=== PATIENT | female | born 1945 | race Caucasian/White ===

== ENCOUNTER 2018-10-28 23:13 | Emergency (ER) | payer OTHER ==
--- OUTSIDE RECORDS SUMMARY | 2018-10-28 23:16 | XMS REPORT | Continuity of Care Document ---
:1945 Author Organization Interface Problems Problem Status Onset Classification Date Comments Source Date Reported Varicose veins of Active Diagnosis 03/31/2018 [facility] lower extremity [place] with inflammation Varicose veins of Active Problem 03/31/2018 [facility] leg with pain [place] EDEMA Active Diagnosis 03/31/2018 [facility] [place] Varicose veins Active Problem 03/31/2018 [facility] NOS [place] Venous Active Problem 03/31/2018 [facility] insufficiency [place] (peripheral) PAIN IN LIMB Active Diagnosis 03/31/2018 [facility] [place] VENOUS Active Diagnosis 03/31/2018 [facility] INSUFFICIENCY NOS [place] Medications Medication Details Route Status Patient Ordering Order Source Instructions Provider Date Allergies, Adverse Reactions, Alerts Substance Category Reaction Severity Reaction Status Date Comments Source type Reported Immunizations Immunization Date Given Site Status Last Updated Comments Source Results Order Results Value Reference Date Interpretation Comments Source Name Range Vital Signs Vital Sign Value Date Comments Source Encounters Location Location Encounter Encounter Reason Attending ADM DC Status Source Details Type Number For Provider Date Date Visit Procedures Procedure Code Date Perfomer Comments Source
--- OUTSIDE RECORDS SUMMARY | 2018-10-28 23:16 | XMS REPORT ---
:1945 Author Organization [employer] Care Team Providers Name Role Phone Ward Ramos Provider Role Unavailable Allergies No Known Allergies Problems Problem Type Condition Code Onset Dates Condition Status Problem Varicose veins of lower extremity 454.1 Active with inflammation Problem Varicose veins of leg with pain 454.8 Active Problem EDEMA 782.3 Active Problem Varicose veins NOS 454.9 Active Problem Venous insufficiency (chronic) I87.2 Active (peripheral) Medications No Known Medications Results No Known Results Summary Purpose [employer] [employer] Submission
--- OUTSIDE RECORDS SUMMARY | 2018-10-28 23:16 | XMS REPORT ---
:1945 Author Organization [employer] Care Team Providers Name Role Phone Ward Ramos Provider Role Unavailable Allergies No Known Allergies Problems Problem Type Condition Code Onset Dates Condition Status Assessment EDEMA 782.3 Active Assessment Varicose veins of lower extremity 454.1 Active with inflammation Assessment PAIN IN LIMB 729.5 Active Problem Varicose veins of lower extremity 454.1 Active with inflammation Problem Varicose veins of leg with pain 454.8 Active Problem EDEMA 782.3 Active Assessment VENOUS INSUFFICIENCY NOS 459.81 Active Assessment Varicose veins of leg with pain 454.8 Active Problem Varicose veins NOS 454.9 Active Problem Venous insufficiency (chronic) I87.2 Active (peripheral) Medications No Known Medications Results No Known Results Summary Purpose [employer]ClinicalWorks Submission
[2018-10-29] MEDS ORDERED: HYDROCODONE/APAP 7.5/325 MG TAB ONE (01:02)
[2018-10-29] MEDS ORDERED: KETOROLAC 30 MG/ML INJ ONE (01:03)
--- NOTE | 2018-10-29 02:05 | ER ---
Nurse's Notes [facility] Name: Rachel Anglin Age: 73 yrs Sex: Female : 1945 Arrival Date: 10/28/2018 Time: 23:17 Bed 14 Private MD: Diagnosis: Pain in left leg;Sprain of other specified parts of knee Presentation: 10/28 23:40 Presenting complaint: Patient states: Nontraumatic left leg pain from the knee up since cc3 this noon, noted to have left foot swelling as well. Transition of care: patient was not received from another setting of care. Onset of symptoms was October 28, 2018. Risk Assessment: Do you want to hurt yourself or someone else? Patient reports no desire to harm self or others. Initial Sepsis Screen: Does the patient meet any 2 criteria? No. Patient's initial sepsis screen is negative. Does the patient have a suspected source of infection? No. Patient's initial sepsis screen is negative. Care prior to arrival: None. 23:40 Method Of Arrival: Wheelchair cc3 23:40 Acuity: KAYLA 3 cc3 Triage Assessment: 23:40 General: Appears in no apparent distress. uncomfortable, Behavior is calm, cooperative, cc3 appropriate for age. Pain: Complains of pain in left leg Pain currently is 10 out of 10 on a pain scale. Quality of pain is described as aching. EENT: No signs and/or symptoms were reported regarding the EENT system. Neuro: Level of Consciousness is awake, alert, obeys commands, Oriented to person, place, time, situation, Appropriate for age. Cardiovascular: Denies chest pain. Respiratory: Airway is patent Respiratory effort is even, unlabored, Respiratory pattern is regular, symmetrical. GI: Abdomen is round non-distended. : No signs and/or symptoms were reported regarding the genitourinary system. Derm: No signs and/or symptoms reported regarding the dermatologic system. Musculoskeletal: Circulation, motion, and sensation intact. Range of motion: limited in left leg. Historical: - Allergies: 23:40 No Known Allergies; cc3 - Home Meds: 23:40 amlodipine oral [Active]; Amiodarone Oral [Active]; cc3 - PMHx: 23:40 Hypertension; Atrial Fib; cc3 - PSHx: 23:40 stent; colon surgery; Appendectomy; cc3 - Immunization history:: Adult Immunizations up to date. - Social history:: Smoking status: Patient/guardian denies using tobacco, never smoked. - Ebola Screening: : No symptoms or risks identified at this time. Screenin:40 Abuse screen: Denies threats or abuse. Denies injuries from another. Nutritional cc3 screening: No deficits noted. Tuberculosis screening: No symptoms or risk factors identified. Fall Risk Ambulatory Aid- None/Bed Rest/Nurse Assist (0 pts). Gait- Weak (10 pts.). Mental Status- Oriented to own ability (0 pts). Assessment: 23:40 General: see triage assessment. cc3 10/29 00:25 Reassessment: Patient appears in no apparent distress at this time. Patient and/or cc3 family updated on plan of care and expected duration. Pain level reassessed. Patient is alert, oriented x 3, equal unlabored respirations, skin warm/dry/pink. 01:20 Reassessment: Patient appears in no apparent distress at this time. Patient and/or cc3 family updated on plan of care and expected duration. Pain level reassessed. Patient is alert, oriented x 3, equal unlabored respirations, skin warm/dry/pink. 02:10 Reassessment: Patient appears in no apparent distress at this time. Patient and/or cc3 family updated on plan of care and expected duration. Pain level reassessed. Patient is alert, oriented x 3, equal unlabored respirations, skin warm/dry/pink. XUAN Terrazas discharged the patient home with prescription given. No IV cannula in situ. Patient left ER vitally stable by wheelchair with her family. Vital Signs: 10/28 23:40 BP 126 / 77; Pulse 89; Resp 20 S; Temp 98.1(O); Pulse Ox 98% on R/A; Weight 86.18 kg cc3 (R); Height 5 ft. 9 in. (175.26 cm) (R); Pain 07/18; 10/29 00:25 BP 123 / 72; Pulse 88; Resp 18 S; Pulse Ox 98% on R/A; cc3 01:50 BP 130 / 61; Pulse 83; Resp 17 S; Pulse Ox 99% on R/A; Pain 310; cc3 10/28 23:40 Body Mass Index 28.06 (86.18 kg, 175.26 cm) cc3 ED Course: 10/28 23:17 Patient arrived in ED. am2 23:23 Aparna Fox is Primary Nurse. cc3 23:40 Arm band placed on left wrist. Patient notified of wait time. cc3 23:40 Patient has correct armband on for positive identification. Bed in low position. Call cc3 light in reach. Side rails up X 1. Pulse ox on. NIBP on. 23:55 Triage completed. cc3 10/29 00:18 Patricio Terrazas PA is PHCP. jr8 00:18 Jorge Luis Reyes MD is Attending Physician. jr8 01:48 Ultrasound completed. Patient tolerated well. cy 02:10 No provider procedures requiring assistance completed. Patient did not have IV access cc3 during this emergency room visit. Administered Medications: 00:55 Drug: [place] (7.5 mg-325 mg) 1 tabs Route: PO; cc3 01:30 Follow up: Response: No adverse reaction; Pain is decreased cc3 01:00 Drug: TORadol 60 mg Route: IM; Site: right gluteus; cc3 01:30 Follow up: Response: No adverse reaction; Pain is decreased cc3 Outcome: 02:04 Discharge ordered by . jr8 02:10 Discharged to home via wheelchair, with family. cc3 02:10 Condition: stable 02:10 Discharge instructions given to patient, family, Instructed on discharge instructions, follow up and referral plans. medication usage, Demonstrated understanding of instructions, follow-up care, medications, Prescriptions given X 2. 02:15 Patient left the ED. cc3 Signatures: Patricio Terrazas PA PA jr8 Iraida Lorenzana am[address] Aparna Fox cc3
--- NOTE | 2018-10-29 02:05 | EDPHYS ---
Physician Documentation [facility] Name: Racehl Anglin Age: 73 yrs Sex: Female : 1945 Arrival Date: 10/28/2018 Time: 23:17 Bed 14 Private MD: ED Physician Jorge Luis Reyes HPI: 10/29 01:57 This 73 yrs old Female presents to ER via Wheelchair with complaints of Leg jr8 Pain. 01:57 The patient presents with pain, that is acute. The complaints affect the left leg. jr8 Context: The problem was sustained moravian, resulted from a repetitive motion. Onset: The symptoms/episode began/occurred acutely, today. Modifying factors: The symptoms are alleviated by nothing. the symptoms are aggravated by movement, weight bearing, bending knee. Associated signs and symptoms: The patient has no apparent associated signs or symptoms. Severity of symptoms: At their worst the symptoms were mild, in the emergency department the symptoms are unchanged. The patient has not experienced similar symptoms in the past. The patient has not recently seen a physician. Patient stated that she was doing a lot of sitting and standing at moravian. While getting up at one point felt a sharp twinge in leg. Since then has had pain to left leg from knee to thigh region. Noticed increase swelling in left leg from ankle to calf region. Historical: - Allergies: 10/28 23:40 No Known Allergies; cc3 - Home Meds: 23:40 amlodipine oral [Active]; Amiodarone Oral [Active]; cc3 - PMHx: 23:40 Hypertension; Atrial Fib; cc3 - PSHx: 23:40 stent; colon surgery; Appendectomy; cc3 - Immunization history:: Adult Immunizations up to date. - Social history:: Smoking status: Patient/guardian denies using tobacco, never smoked. - Ebola Screening: : No symptoms or risks identified at this time. ROS: 10/29 01:57 Eyes: Negative for injury, pain, redness, and discharge, ENT: Negative for injury, jr8 pain, and discharge, Neck: Negative for injury, pain, and swelling, Cardiovascular: Negative for chest pain, palpitations, and edema, Respiratory: Negative for shortness of breath, cough, wheezing, and pleuritic chest pain, Abdomen/GI: Negative for abdominal pain, nausea, vomiting, diarrhea, and constipation, Back: Negative for injury and pain, Skin: Negative for injury, rash, and discoloration, Neuro: Negative for headache, weakness, numbness, tingling, and seizure. MS/extremity: Positive for pain, of the left leg. Exam: 01:57 Eyes: Pupils equal round and reactive to light, extra-ocular motions intact. Lids and jr8 lashes normal. Conjunctiva and sclera are non-icteric and not injected. Cornea within normal limits. Periorbital areas with no swelling, redness, or edema. ENT: Nares patent. No nasal discharge, no septal abnormalities noted. Tympanic membranes are normal and external auditory canals are clear. Oropharynx with no redness, swelling, or masses, exudates, or evidence of obstruction, uvula midline. Mucous membranes moist. Neck: Trachea midline, no thyromegaly or masses palpated, and no cervical lymphadenopathy. Supple, full range of motion without nuchal rigidity, or vertebral point tenderness. No Meningismus. Cardiovascular: Regular rate and rhythm with a normal S1 and S2. No gallops, murmurs, or rubs. Normal PMI, no JVD. No pulse deficits. Respiratory: Lungs have equal breath sounds bilaterally, clear to auscultation and percussion. No rales, rhonchi or wheezes noted. No increased work of breathing, no retractions or nasal flaring. Abdomen/GI: Soft, non-tender, with normal bowel sounds. No distension or tympany. No guarding or rebound. No evidence of tenderness throughout. Back: No spinal tenderness. No costovertebral tenderness. Full range of motion. Skin: Warm, dry with normal turgor. Normal color with no rashes, no lesions, and no evidence of cellulitis. Neuro: Awake and alert, GCS 15, oriented to person, place, time, and situation. Cranial nerves II-XII grossly intact. Motor strength 5/5 in all extremities. Sensory grossly intact. Cerebellar exam normal. Normal gait. 01:57 Musculoskeletal/extremity: Extremities: grossly normal except: noted in the left leg: pain, tenderness, to back of knee and anterior thigh, ROM: intact in all extremities, full active range of motion, full passive range of motion, limited active range of motion due to pain, limited passive range of motion due to pain, Circulation is intact in all extremities. Sensation intact. DVT Exam: negative Homans' sign noted on exam, no appreciated bluish discoloration, no erythema, no increased warmth, pain, that is moderate, of the left leg, swelling, that is mild, of the left leg, tenderness, that is mild, of the left leg. Vital Signs: 10/28 23:40 BP 126 / 77; Pulse 89; Resp 20 S; Temp 98.1(O); Pulse Ox 98% on R/A; Weight 86.18 kg cc3 (R); Height 5 ft. 9 in. (175.26 cm) (R); Pain 07/18; 10/29 00:25 BP 123 / 72; Pulse 88; Resp 18 S; Pulse Ox 98% on R/A; cc3 01:50 BP 130 / 61; Pulse 83; Resp 17 S; Pulse Ox 99% on R/A; Pain 310; cc3 10/28 23:40 Body Mass Index 28.06 (86.18 kg, 175.26 cm) cc3 MDM: 00:18 Patient medically screened. jr8 02:03 Data reviewed: vital signs, nurses notes, radiologic studies, ultrasound, and as a jr8 result, I will discharge patient. Data interpreted: Pulse oximetry: on room air is 98 %. Interpretation: normal. Counseling: I had a detailed discussion with the patient and/or guardian regarding: the historical points, exam findings, and any diagnostic results supporting the discharge/admit diagnosis, radiology results, the need for outpatient follow up, a family practitioner, a orthopedic surgeon, to return to the emergency department if symptoms worsen or persist or if there are any questions or concerns that arise at home. 10/29 00:43 Order name: US Extremity Venous Unilateral Ltd jr8 Administered Medications: 00:55 Drug: [place] (7.5 mg-325 mg) 1 tabs Route: PO; cc3 01:30 Follow up: Response: No adverse reaction; Pain is decreased cc3 01:00 Drug: TORadol 60 mg Route: IM; Site: right gluteus; cc3 01:30 Follow up: Response: No adverse reaction; Pain is decreased cc3 Disposition: 10/29/18 02:04 Discharged to Home. Impression: Pain in left leg, Sprain of other specified parts of knee. - Condition is Stable. - Discharge Instructions: Knee Sprain, Musculoskeletal Pain. - Prescriptions for Robaxin 500 mg Oral Tablet - take 2 tablet by ORAL route every 6 hours As needed; 40 tablet. Ultracet 37.5- 325 mg Oral Tablet - take 1 tablet by ORAL route every 6 hours - for up to 5 days; do not exceed 8 tablets per day.; 30 tablet. - Medication Reconciliation Form, Thank You Letter, Antibiotic Education, Prescription Opioid Use form. - Follow up: Private Physician; When: 5 - 6 days; Reason: Recheck today's complaints, Continuance of care, Re-evaluation by your physician. - Problem is new. - Symptoms have improved. Signatures: Dispatcher [employer] EDMS Patricio Terrazas PA PA jr8 Aparna Fox cc3 Corrections: (The following items were deleted from the chart) 02:04 02:04 10/29/2018 02:04 Discharged to Home. Impression: Pain in left leg. Condition is jr8 Stable. Forms are Medication Reconciliation Form, Thank You Letter, Antibiotic Education, Prescription Opioid Use. Follow up: Private Physician; When: 5 - 6 days; Reason: Recheck today's complaints, Continuance of care, Re-evaluation by your physician. Problem is new. Symptoms have improved. jr8 02:15 02:04 10/29/2018 02:04 Discharged to Home. Impression: Pain in left leg; Sprain of cc3 other specified parts of knee. Condition is Stable. Forms are Medication Reconciliation Form, Thank You Letter, Antibiotic Education, Prescription Opioid Use. Follow up: Private Physician; When: 5 - 6 days; Reason: Recheck today's complaints, Continuance of care, Re-evaluation by your physician. Problem is new. Symptoms have improved. jr8
--- NOTE | 2018-10-29 08:22 | RAD REPORT ---
EXAM DESCRIPTION: USExtremity Venous Uni Ltd10/29/2018 1:48 am CLINICAL HISTORY: left leg pain COMPARISON: None. FINDINGS: Left common femoral, superficial femoral, popliteal and posterior tibial veins are compre ssible and demonstrate augmentation. Doppler demonstrates good flow. IMPRESSION: No evidence of deep venous thrombosis involving the left lower extremity.
== END 2018-10-29 02:15 | disposition home or self-care (01) ==
LOC: ER 23:13
DX: S83.92XA Sprain of unspecified site of left knee, initial encounter (principal); X50.3XXA Overexertion from repetitive movements, initial encounter; Y93.9 Activity, unspecified; Y92.22 Religious institution as the place of occurrence of the external cause
CPT/HCPCS: 93971

== ENCOUNTER 2019-02-20 19:08 | Emergency (ER) | payer OTHER ==
--- OUTSIDE RECORDS SUMMARY | 2019-02-20 19:10 | XMS REPORT ---
[...] Medications Results No Known Results Summary Purpose [employer] Submission
[2019-02-20] MEDS ORDERED: ACETAMINOPHEN 500 MG TAB ONE (19:53)
--- NOTE | 2019-02-20 20:02 | RAD REPORT ---
EXAM DESCRIPTION: CT - Head C Spine Mpr Wo Con - 02/20/2019 7:43 pm CLINICAL HISTORY: Head and neck injury status post fall. Head and neck pain COMPARISON: None. TECHNIQUE: Computed axial tomography of the head and cervical spine was obtained. Sagittal and coronal reconstruction was performed. All CT scans are performed using dose optimization technique as appropriate and may include automated exposure control or mA/KV adjustment according to patient size. FINDINGS: An intracranial bleed is not seen. Low-density areas within the right cerebrum may be seco ndary to old infarction. Mild periventricular, subcortical and deep white matter low-density areas li misa related to ischemic changes secondary to small vessel disease The ventricles are normal in caliber. An extra-axial fluid collection is not noted.Fluid within the v isualized sinuses and mastoids is not seen A cervical fracture is not visualized. No dislocation is noted. Spondylosis involves cervical spine IMPRESSION: No acute intracranial abnormality is seen. A cervical fracture is not visualized. If the patient continues to have symptoms to suggest intracra nial /spinal cord pathology then MRI would be recommended
--- NOTE | 2019-02-20 20:03 | RAD REPORT ---
EXAM DESCRIPTION: RAD - Hip Right 2 View - 02/20/2019 7:57 pm CLINICAL HISTORY: Right hip pain status post injury FINDINGS: No fracture or dislocation is seen. If the patient continues to have symptoms to suggest an occult fracture then MRI would be recommended
--- NOTE | 2019-02-20 20:34 | RAD REPORT ---
EXAM DESCRIPTION: Jonny Rodriguez And Lat (2 Views)02/20/2019 7:57 pm CLINICAL HISTORY: Cough COMPARISON: None FINDINGS: A 6 millimeter nodule is present within the mid left lung which is equivocally calcified. Vague 9 millimeter nodular opacity is present the left base. The right lung appears clear of acute infiltrate. The heart is normal size. Small to moderate hiatal hernia IMPRESSION: Calcified left lung granuloma 9 millimeter vague nodular opacity overlying the left base may represent confluence of ribs and vesse ls or a pulmonary nodule. It is recommended that the patient have a followup chest films in 6 weeks i ncluding obliques views for further evaluation
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
== END 2019-02-20 21:25 | disposition home or self-care (01) ==
LOC: ER 19:08
DX: S16.1XXA Strain of muscle, fascia and tendon at neck level, initial encounter (principal); S39.012A Strain of muscle, fascia and tendon of lower back, initial encounter; S76.011A Strain of muscle, fascia and tendon of right hip, initial encounter; V59.50XA Passenger in pick-up truck or van injured in collision with unspecified motor vehicles in traffic accident, initial encounter; Z79.01 Long term (current) use of anticoagulants; I10 Essential (primary) hypertension; I48.91 Unspecified atrial fibrillation
CPT/HCPCS: 70450; 71046; 72125; 99284